=== PATIENT | female | born 1960 | race Caucasian/White ===

== ENCOUNTER 2019-07-15 06:23 | Day surgery (SDC) | payer OTHER ==
[~2019-07-15] VITALS: Ht 157.5 cm; Wt 54.5 kg
[~2019-07-15 06:23] MED LIST: FLUO-191 PO; FLUT16H NASAL; IBUP-2271 PO; IPRA4AER IH; MOME13HF2 IH; MONT10TA21 PO; NICO-575 PO; TRAZ-252 PO
[2019-07-15] MEDS ORDERED: LIDOCAINE 2% 30 ML JELLY TP ONE (06:24)
[2019-07-15] MEDS ORDERED: LIDOCAINE 4% 50 ML SOLUTION TP ONE (06:24)
[2019-07-15] MEDS ORDERED: SODIUM CHLORIDE 0.9% 1,000 ML IV ONE (06:30)
[2019-07-15] MEDS ORDERED: SODIUM CHLORIDE 0.9% 1,000 ML ONE (06:54)
[2019-07-15] MEDS ORDERED: GABA-531 PO (07:20)
[2019-07-15] MEDS ORDERED: [UNRECOGNIZED DRUG - CODE] PO (07:20)
[2019-07-15] MEDS ORDERED: IPRA3AMP23 NEB (07:20)
[2019-07-15] MEDS ORDERED: CYCL10 PO (07:22)
[2019-07-15] MEDS ORDERED: NICO4GUM PO (07:22)
[2019-07-15] MEDS ORDERED: FentaNYL CITRATE-PF 100 MCG/2 ML VIAL ONE (07:59)
[2019-07-15] MEDS ORDERED: MIDAZOLAM HCL 2 MG/2 ML VIAL ONE (07:59)
[2019-07-15] MEDS ORDERED: MethylPREDNISolone SOD SUCC 125 MG/2 ML VIAL ONE (08:39)
[2019-07-15] MEDS ORDERED: MethylPREDNISolone SOD SUCC 125 MG/2 ML VIAL IVP ONE (08:45)
[2019-07-15] MEDS ORDERED: OXYGEN THERAPY IH SCH (20:00)
== END 2019-07-15 10:20 | disposition home or self-care (01) ==
LOC: SURGERY 06:23
PROVIDERS: ATTEND Internal Medicine Critical Care Medicine
DX: R05 Cough (principal); R91.1 Solitary pulmonary nodule; J34.89 Other specified disorders of nose and nasal sinuses; J98.8 Other specified respiratory disorders; J38.4 Edema of larynx; B37.0 Candidal stomatitis; F34.9 Persistent mood [affective] disorder, unspecified; Z98.890 Other specified postprocedural states; Z79.899 Other long term (current) drug therapy; Z87.891 Personal history of nicotine dependence
CPT/HCPCS: 31623; 31624; 71045; 87015; 87070; 87101; 87205; 87206; 87220; 88108; 88312; J2250; J2930; J3010; J7030

== ENCOUNTER 2020-08-17 06:50 | Day surgery (SDC) | payer OTHER ==
[2020-08-15 11:35] LABS: COVID AG,FIA SOURCE NASOPHARYNGEAL
[~2020-08-17] VITALS: Ht 154.9 cm; Wt 53.6 kg
[~2020-08-17 06:50] MED LIST changes: +CYCL10 PO; -FLUT16H NASAL; +GABA-1181 PO; -IBUP-2271 PO; +IPRA3AMP23 NEB; -MONT10TA21 PO; -NICO-575 PO; +NICO4GUM PO; +SODIUM CHLORIDE 0.9% 1,000 ML IV ONE; +SODIUM CHLORIDE 0.9% 1,000 ML ONE; -TRAZ-252 PO; +[UNRECOGNIZED DRUG - CODE] PO
[2020-08-17] MEDS ORDERED: BENZOCAINE 20% 50 MCG/SPRAY 57 GM TP ONE (06:51)
[2020-08-17] MEDS ORDERED: ALBUTEROL SULFATE 2.5 MG/0.5 ML NEB SOLUTION NEB ONE (06:51)
[2020-08-17] MEDS ORDERED: LIDOCAINE 2% 30 ML JELLY TP ONE (06:51)
[2020-08-17] MEDS ORDERED: FentaNYL CITRATE PF 100 MCG/2 ML VIAL ONE (07:48)
[2020-08-17] MEDS ORDERED: MIDAZOLAM HCL 2 MG/2 ML VIAL ONE (07:48)
[2020-08-17] MEDS ORDERED: MethylPREDNISolone SOD SUCC 125 MG/2 ML VIAL IVP ONE (09:15)
[2020-08-17] MEDS ORDERED: MethylPREDNISolone SOD SUCC 125 MG/2 ML VIAL ONE (09:48)
[2020-08-17] MEDS ORDERED: OXYGEN THERAPY IH SCH (20:00)
== END 2020-08-17 11:55 | disposition home or self-care (01) ==
LOC: SURGERY 06:50
PROVIDERS: ATTEND Internal Medicine Critical Care Medicine
DX: J38.4 Edema of larynx (principal); B37.0 Candidal stomatitis
CPT/HCPCS: 31623; 31624; 71045; 87070; 87101; 87206; 87220; 87426; 88184; 88185; C9803; J2250; J2930; J3010; J7030; 87015; J7613